=== PATIENT | male | born 1970 | race Caucasian/White ===

== ENCOUNTER 2018-02-02 22:16 | Emergency (ER) | payer OTHER ==
[2018-02-02 22:31] VITALS: BP 132/85
[2018-02-03] MEDS ORDERED: IBUPROFEN 600 MG TABLET PO STA (01:01)
--- NOTE | 2018-02-03 01:01 | ED Physician Documentation ---
PD HPI UPPER EXT INJURY - Stated complaint Stated Complaint: LEFT THUMB LAC - Chief complaint Chief Complaint: Laceration - History obtained from History obtained from: Patient - History of Present Illness Location: Left, Finger (thumb) Type of injury: Laceration (edge of metal sheet) Where injury occurred: Home Timing - onset: Today Timing - details: Abrupt onset, Still present Worsened by: Moving, Palpating Associated symptoms: No: Weakness, Numbness Similar symptoms before: Has not had sx before Recently seen: Not recently seen Review of Systems Constitutional: denies: Fever, Chills Nose: denies: Rhinorrhea / runny nose, Congestion Throat: denies: Sore throat Respiratory: denies: Cough GI: denies: Nausea, Vomiting, Diarrhea Neurologic: denies: Focal weakness, Numbness, Near syncope PD PAST MEDICAL HISTORY - Past Medical History Cardiovascular: None Respiratory: None Neuro: None Endocrine/Autoimmune: None - Past Surgical History Past Surgical History: Yes Ortho: Arthroscopic surgery - Present Medications Home Medications: Ambulatory Orders Medication Instructions Recorded Confirmed No Known Home Medications [No 02/02/18 02/02/18 Known Home Medications] - Allergies Allergies/Adverse Reactions: Allergies Allergy/AdvReac Type Severity Reaction Status Date / Time No Known Drug Allergies Allergy Verified 02/02/18 22:31 - Social History Does the pt smoke?: Yes Smoking Status: Current every day smoker Does the pt drink ETOH?: Yes Does the pt have substance abuse?: No - Immunizations Immunizations are current?: Yes PD ED PE NORMAL - Vitals Vital signs reviewed: Yes - General General: Alert and oriented X 3, No acute distress, Well developed/nourished - Derm Derm: Normal color, Warm and dry - Extremities Extremities: Other (left thumb palmar proximal phalanx with 1 cm laceration to fatty layer without FB. Good flexion and has normal movement. It does split open with ROM. ) - Neuro Neuro: No motor deficit, No sensory deficit Results - Vitals Vitals: Vital Signs - 24 hr 02/02/18 22:29 Temperature 36.6 C Heart Rate 84 Respiratory 16 Rate Blood Pressure 132/85 H O2 Saturation 97 Oxygen O2 Source Room air Procedures - Laceration (location) left thumb palmar proximal Length in cm: 1 Wound type: Linear, Into subcut fat, Clean. No: Into muscle Neurovascular status: Sensory intact, Motor intact, Vascular intact Tendon involvement: Tendon intact. No: Tendon Injury Anesthesia: Lidocaine 1% with epi Wound Preparation: Wound explored. No: FB identified Skin layer closure: Nylon, Interrupted, Size #-0 - enter number (4), Sutures - enter # (5) Other: Patient tolerated well, No complications, Neurovascular intact, Dressing applied, Tetanus UTD Complexity: Simple PD MEDICAL DECISION MAKING - ED course Complexity details: considered differential, d/w patient Departure - Departure Disposition: 01 Home, Self Care Clinical Impression: Laceration of left thumb Qualifiers: Encounter type: initial encounter Damage to nail status: without damage Foreign body presence: without foreign body Qualified Code(s): S61.012A - Laceration without foreign body of left thumb without damage to nail, initial encounter Condition: Stable Record reviewed to determine appropriate education?: Yes Instructions: ED Laceration Hand Follow-Up: SUSAN Yanez [Provider Group] Comments: Tylenol or ibuprofen if needed for pains. It is okay to wash and shower. Clean off the wound twice a day with soap and water, or peroxide and water. Apply some antibiotic ointment to it to keep it moist. Also to watch for signs of infection such as purulence, redness or increasing pain. Return to your primary care or the ER at the specified time for suture removal. Suture removal 9 or 10 days. Forms: Activity restrictions Discharge Date/Time: 02/03/18 01:14
== END 2018-02-03 01:14 | disposition home or self-care (01) ==
LOC: ED 22:16
DX: S61.012A Laceration without foreign body of left thumb without damage to nail, initial encounter (principal); W26.8XXA Contact with other sharp object(s), not elsewhere classified, initial encounter; Y92.009 Unspecified place in unspecified non-institutional (private) residence as the place of occurrence of the external cause; F17.200 Nicotine dependence, unspecified, uncomplicated
CPT/HCPCS: 12001; 99282; 99283; A9270

== ENCOUNTER 2019-04-12 09:02 | Emergency (ER) | payer OTHER ==
[2019-04-12 09:13] VITALS: BP 122/77
--- NOTE | 2019-04-12 09:38 | ED Physician Documentation ---
History of Present Illness - Stated complaint Stated Complaint: SWELLING LIP AND LFT FT - Chief complaint Chief Complaint: Allergic Rx - History obtained from History obtained from: Patient - Additonal information Additional information: Patient is a previously healthy 48-year-old male presenting with urticarial-like symptoms that have been intermittent over the past 1 month. Patient has no known allergies and adamantly denies any new medications, new foods, new laundry detergents, lotions or other chemicals, recent travel or other exposures. Patient reports erythematous, itchy rash in different areas over his body intermittently including his trunk and extremities. Patient denies any blistering, vesicles, or weeping from these areas. Patient also reports lip swelling occasionally as recently as last night. Patient denies any respiratory component to the symptoms. Patient has been seen by multiple providers including his primary care physician with extensive work-up including for aut oimmune disease processes and otherwise, which have returned negative. Patient is also been placed on multiple medications including steroids and antihistamines. However, he still has his steroid was a burst as opposed to a taper. Patient is also received antibiotics, but reports no infectious symptoms. No other improving or worsening factors noted. Review of Systems Constitutional: denies: Fever Skin: reports: Rash, Lesions PD PAST MEDICAL HISTORY - Past Medical History Cardiovascular: None Respiratory: None Endocrine/Autoimmune: None - Past Surgical History Past Surgical History: Yes Ortho: Arthroscopic surgery - Present Medications Home Medications: Ambulatory Orders Medication Instructions Recorded Confirmed Epinephrine [Auvi-Q] 0.3 mg IJ PRN PRN #2 auto.injct 04/12/19 predniSONE [Deltasone] 10 mg PO [id number] #42 tab 04/12/19 - Allergies Allergies/Adverse Reactions: Allergies Allergy/AdvReac Type Severity Reaction Status Date / Time No Known Drug Allergies Allergy Verified 02/02/18 22:31 - Social History Does the pt smoke?: Yes Smoking Status: Current every day smoker Does the pt drink ETOH?: Yes Does the pt have substance abuse?: No - Immunizations Immunizations are current?: Yes PD ED PE NORMAL - Vitals Vital signs reviewed: Yes - General General: Alert and oriented X 3, No acute distress, Well developed/nourished - HEENT HEENT: Atraumatic, Moist mucous membranes, Pharynx benign, Other (No lip or oral swelling noted) - Cardiac Cardiac: RRR, No murmur - Respiratory Respiratory: No respiratory distress, Clear bilaterally - Derm Derm: Other (Small area of erythematous, macular urticarial rash over left foot without joint involvement.Membrane involvement or other rash found.) - Extremities Extremities: No deformity, No tenderness to palpate - Neuro Neuro: Alert and oriented X 3, No motor deficit, No sensory deficit - Psych Psych: Normal mood, Normal affect Results - Vitals Vitals: Vital Signs - 24 hr 04/12/ 09:11 Temperature 37.1 C Heart Rate 92 Respiratory 20 Rate Blood Pressure 122/77 O2 Saturation 96 Oxygen O2 Source Room air PD MEDICAL DECISION MAKING - ED course Complexity details: considered differential, d/w patient ED course: Patient presenting with intermittent skin changes indicative of allergic reaction without anaphylaxis, infection, or other complication. No mucous membrane involvement and have low suspicion for SSSS, TTN, Massey-Sergio's or other more severe pathology. Patient has been seen by his primary care and other physicians and is scheduled for dermatology follow-up shortly. Also recommended possible allergy follow-up.At this time, do not feel patient requires emergent medications but discussed longer steroid taper, as well as continued use of antihistamines the patient has available to him by prescription and [id number]. Also described other topical options. We will also prescribe EpiPen as this has not yet been done in case patient's symptoms worsen at home. Otherwise, do not feel he requires invasive testing, imaging, consult, or hospitalization at this time. Patient amenable and comfortable with discharge plan. Departure - Departure Disposition: 01 Home, Self Care Clinical Impression: Allergic urticaria Instructions: ED Allergic Reaction General Other Follow-Up: OCTAVIO PALACIO DO [Primary Care Provider] - Within 3 Days Prescriptions: Epinephrine [Auvi-Q] 0.3 mg IJ PRN PRN #2 auto.injct PRN Reason: Allergy Symptoms predniSONE [Deltasone] 10 mg PO [id number] #42 tab Comments: Please use steroids as prescribed to help relieve allergic reaction symptoms. Also recommend continued use of antihistamines as prescribed or by [id number]. May also try topical cream such as hydrocortisone. Recommend follow-up with your primary care physician in the next 2 to 3 days, as well as dermatology as scheduled. May also consider referral to allergy physician. Please return to ED sooner if expands worsening symptoms or have other concerns.
== END 2019-04-12 10:04 | disposition home or self-care (01) ==
LOC: ED 09:02
DX: L50.0 Allergic urticaria (principal); F17.200 Nicotine dependence, unspecified, uncomplicated
CPT/HCPCS: 99283